=== PATIENT | male | born 2000 | race Caucasian/White ===

== ENCOUNTER → 2024-10-12 | Outpatient (CLI) | payer OTHER ==
--- NOTE | 2024-10-12 07:37 | CT ---
EXAMINATION TYPE: CT brain wo con CT DLP: 1108.40 mGycm, Automated exposure control for dose reduction was used. DATE OF EXAM: 10/12/2024 7:28 AM COMPARISON: None. CLINICAL INDICATION:Male, 24 years old with history of R55 SYNCOPE G51.9 FACIAL NERVE DISORD, TECHNIQUE: Brain: Multiple axial CT images of the brain were obtained without IV contrast. . Coronal and sagitta l reformats reviewed. FINDINGS: Brain: Extra-axial spaces: No abnormal extra-axial fluid collections. Ventricular system: Within normal limits Cerebral parenchyma: No acute intraparenchymal hemorrhage or mass effect. The jones-white junction is well differentiated. Cerebellum: Unremarkable. Mass effect: No evidence of midline shift. Intracranial vasculature: unremarkable Soft tissues: Normal. Calvarium/osseous structures: No depressed skull fracture. Paranasal sinuses and mastoid air cells: The mastoid air cells are clear. Inferior right maxillary si nus 2.2 cm retention cyst. There are 2 left inferior maxillary sinus mucous retention cysts with larg est measuring up to 1.3 cm. The remaining paranasal sinuses are relatively clear. Visualized orbits: Orbital contents are intact. IMPRESSION: No acute intracranial process. [facility], , 10/12/2024 7:34 AM
== END | disposition home or self-care (01) ==
LOC: RADCTMAIN 07:11
PROVIDERS: ATTEND Psychiatry & Neurology Neurology
DX: R55 Syncope and collapse (principal); G51.9 Disorder of facial nerve, unspecified
CPT/HCPCS: 70450